=== PATIENT | female | born 1970 | race Caucasian/White ===

== ENCOUNTER 2017-02-07 21:49 | Observation (INO) ==
[2017-02-07] MEDS ORDERED: MORPHINE 2 MG/1 ML SYRINGE IV STA (22:52)
[2017-02-07] MEDS ORDERED: ALUM/MAG/SIMETH/LIDO VISC 1:1 30 ML BOTTLE PO STA (22:52)
[2017-02-07] MEDS ORDERED: METOPROLOL TARTRATE 25 MG TABLET PO STA (22:52)
[2017-02-07] MEDS ORDERED: NITROGLYCERIN 2% OINT 1 INCH/GM PACK TOP STA (22:52)
[2017-02-07] MEDS ORDERED: ASPIRIN 325 MG TABLET PO STA (22:52)
[2017-02-07] MEDS ORDERED: ONDANSETRON 4 MG/2 ML VIAL IV STA (22:52)
[2017-02-07 23:02] LABS: Basophils % 0.2 % (0.0-0.8); Eosinophils # 0.1 10*3/uL (0.0-0.87); Eosinophils % 1.2 % (0.00-10.9); Hematocrit 39.1 VOL% (35.7-47.0); Immature Granulocytes % 0.4 %; Immature Granulocytes Absolute 0.03 #; Lymphocytes % 24.7 % (21.3-54.2); Mean Corpuscular HGB Conc 33.2 GM/DL (32-36); Mean Corpuscular Hemoglobin 28 PG (27-34); Mean Corpuscular Volume 82.8 FL (87-102); Monocytes # 0.4 10*3/uL (0.11-0.8); Monocytes % 4.6 % (1.7-12.7); Neutrophils # 5.7 10*3/uL (1.4-7.4); Neutrophils % 68.9 % (38.7-73.9); Platelet Count 160 T/CUMM (130-400); Red Blood Count 4.72 MC/CUMM (3.8-5.5); Red Cell Distribution Width 14.1 % (9.3-17.3); White Blood Count 8.2 T/CUMM (4-12)
[2017-02-07] MEDS ORDERED: ONDANSETRON 4 MG/2 ML VIAL ONE (23:04)
[2017-02-07] MEDS ORDERED: NITROGLYCERIN 2% OINT 1 INCH/GM PACK TOP ONE (23:04)
[2017-02-07] MEDS ORDERED: METOPROLOL TARTRATE 25 MG TABLET ONE (23:04)
[2017-02-07] MEDS ORDERED: ALUM/MAG/SIMETH/LIDO VISC 1:1 30 ML BOTTLE PO ONE (23:05)
[2017-02-07] MEDS ORDERED: MORPHINE 2 MG/1 ML SYRINGE ONE (23:05)
--- NOTE | 2017-02-07 23:08 | Emergency Department Note ---
Joelle Browne Hilary, am scribing for, and in the presence of, Derick Martinez MD 23:01. Juan Browne Charles R, MD, personally performed the services described in this documentation, ascribed by Joan Lai in my presence, and it is both accurate and complete . Arrival - Arrival Chief Complaint: Chest Pain ED Nursing Triage Note: C/O Chest pain under left breast s/p arguing with her adult son. Pt describes pain as sharp in nature. Pt was given 324mg ASA and 1 SL nitro without relief by EMS. EKG obtained. Mode of Arrival: Stretcher Limitations: No Limitations Source: Patient, RN Notes Reviewed Time Seen by Provider: 02/07/17 22:28 - History of Present Illness HPI Narrative: Pt is a 46 y/o white female presenting to the ED with c/o chest pain which onset around 2100. She reports that she was arguing with her son upon onset and that the pain has lessoned but is still there. Pt confirms chest pain and SOB on exertion that improves upon rest but denies abdominal pain. Pt had a stress test and heart cath in 2009 which was normal. No other complaints or problems stated in the ED. Onset (ago): hour(s) Consistency: constant Severity: moderate Severity scale (1-10): 3 Quality: sharp Date of Last Menstrual Period: Hysterectomy Allergies/Adverse Reactions: Allergies Allergy/AdvReac Type Severity Reaction Status Date / Time Penicillins Allergy RASH Verified 01/30/17 00:10 Home Medications: Home Medications Medication Instructions Recorded Confirmed Type Aspirin 325 mg PO DAILY 02/07/17 02/07/17 History Gabapentin Cap/Tab [Neurontin 200 mg PO BEDTIME 02/07/17 02/07/17 History Cap/Tab] Insulin Glargine [Lantus] 55 unit SUBCUT BEDTIME 02/07/17 02/07/17 History Insulin NPH Hum/Reg Insulin Hm 60 unit SUBCUT QAM 02/07/17 02/07/17 History [NovoLIN 70/30] Iron (Carbonyl) [Feosol Natural 45 mg PO DAILY 02/07/17 02/07/17 History Release Tab] Melatonin 10 mg PO BEDTIME 02/07/17 02/07/17 History Metformin HCl 500 mg PO BID 02/07/17 02/07/17 History tiZANidine [Zanaflex] 4 mg PO TID 02/07/17 02/07/17 History Review of System - Review of System 12 point system: reviewed and no additional remarkable complaints except as stated - Review of System Constitutional: Absent: fever Respiratory: Present: respiratory distress (SOB on exertion) Cardiovascular: Present: chest pain Gastrointestinal: Absent: abdominal pain Medical,Surgical,& Family Hx - Medical History Cardio: History of: Hypertension Psychological: History of: Anxiety Disorders Endocrine: History of: Diabetes Mellitus (IDDM) Respiratory: History of: Asthma, Bronchitis - Surgical History Orthopedic Surgeries: Surgical HX of;: Orthopedic Surgery (ORIF left femur fracture) - Social History Smoking Status: Current every day smoker Frequency of Alcohol Use: None Type of Drug Use: None Exam Vital Signs: Vital Signs Temperature 98.2 F 02/07/17 21:49 Pulse Rate 85 02/07/17 23:00 Respiratory Rate 18 02/07/17 23:00 Blood Pressure 129/90 02/07/17 23:00 O2 Sat by Pulse Oximetry 100 02/07/17 23:00 - General General appearance: alert, in no apparent distress - Head Head exam: Present: atraumatic, normocephalic - Eye Eye exam: Present: normal appearance, PERRL, EOMI - ENT ENT exam: Present: mucous membranes moist, TM's normal bilaterally. Absent: mucous membranes dry - Neck Neck exam: Present: full ROM, trachea midline. Absent: tenderness - Chest Chest inspection: Present: symmetric chest wall rise. Absent: tenderness - Respiratory Respiratory exam: Present: rhonchi (bilaterally) - Cardiovascular Cardiovascular exam: Present: regular rate, normal rhythm, normal heart sounds. Absent: murmur, rubs, gallop - Abdominal Exam Abdominal exam: Present: soft, normal bowel sounds. Absent: distention, tenderness - Extremities Exam Extremities exam: Present: full ROM, tenderness, pedal edema (+1 pedal edema) - Back Exam Back exam: Present: full ROM. Absent: tenderness - Neurological Exam Neurological exam: Present: alert, oriented X3, CN II-XII intact. Absent: motor sensory deficit - Psychiatric Psychiatric exam: Present: normal affect, normal mood - Skin Skin exam: Present: warm, dry, intact, normal color. Absent: rash Course - Consultations Consultation #1: Hospitalist will admit patient Time: 23:56 Results - Labs CBC & BMP: 02/07/17 22:06 02/07/17 22:06 Lab Results: I have reviewed the patients labs Labs: Laboratory Tests 02/07/17 22:06 WBC 8.2 RBC 4.72 Hgb 13.0 Hct 39.1 MCV 82.8 L MPV 13.0 H Laboratory Tests 02/07/17 02/07/17 02/07/17 22:06 22:06 22:53 INR 1.0 PT Patient/Control Mix 10.5 D-Dimer, Quantitative <= 0.5 Sodium 137 Potassium 3.8 Chloride 101 Carbon Dioxide 23 Anion Gap 16.8 H Glucose 309 H Magnesium 1.6 L Total Bilirubin < 0.39 L Albumin 3.3 L Albumin/Globulin Ratio 0.9 L Lipase 53.0 L Urine Color Yellow Urine Appearance Cloudy Urine Urobilinogen < 2.0 H Laboratory Tests 02/07/17 02/07/17 22:06 22:50 B-Natriuretic Peptide 4 Urine Opiates Screen Negative Ur Barbiturates Screen Negative Ur Phencyclidine Scrn Negative U Amphetamine/Methamph Negative U Benzodiazepines Scrn Negative U Cocaine Metab Screen Negative U Cannabinoids Screen Negative Disposition Clinical Impression: Chest pain, Uncontrolled diabetes mellitus, Hyperglycemia, Chest pain, Atypical chest pain Case discussed with: patient Disposition: Still a Patient Condition: Stable Time of Disposition: 23:55
[2017-02-07 23:10] LABS: D-Dimer <= 0.5 MG/L FEU; PT Patient Result 10.5 SECS
[2017-02-07 23:14] LABS: Apearance,Urine CLOUDY (Clear); Bilirubin,Urine Negative (Negative); Blood, Urine Negative (Negative); Glucose,Urine (UA) >=500 mg/dL (Negative); Ketones,Urine Negative (Negative); Mucus,Urine Occasional /LPF (Occasional); Nitrite,Urine Negative (Negative); Protein,Urine Negative; RBC,Urine 2 /HPF (0-4); Squamous Epithelial Cell,Urine Many /HPF (0-10); Urine Color Yellow (Yellow); Urine Specific Gravity 1.021 (1.001-1.035); Urine Urobilinogen < 2.0 EU/DL (0.2-1.0); WBC,Urine 2 /HPF (0-6)
[2017-02-07 23:20] LABS: Alanine Aminotransferase 28 U/L (13-56); Albumin 3.3 G/DL (3.4-5.0); Alkaline Phosphatase 101 U/L (45-117); Aspartate Amino Transferase 18 U/L (0-37); Blood Urea Nitrogen 12 MG/DL (7-18); Calcium 8.5 MG/DL (8.5-10.1); Glucose 309 MG/DL (74-106); Magnesium 1.6 MG/DL (1.8-2.4); Osmolality,Calculated 284.8 MOS/KG (273-304); Potassium 3.8 MMOL/L (3.5-5.1); Sodium 137 MMOL/L (136-145); Total Protein 6.8 G/DL (6.4-8.3)
[2017-02-07 23:38] LABS: Barbiturates Screen,Urine Negative (Negative); Benzodiazepines Screen,Urine Negative (Negative); Cannabinoid Screen,Urine Negative (Negative); Opiate Screen,Urine Negative (Negative); Phencyclidine Screen,Urine Negative (Negative)
[2017-02-07] MEDS ORDERED: MAGNESIUM SULF RIDER 2 GM in PREMIX 1 EACH IV STA (23:52)
[2017-02-07] MEDS ORDERED: ENOXAPARIN 100 MG/ML SYRINGE SUBCUT STA (23:55)
[2017-02-08] MEDS ORDERED: ENOXAPARIN 120 MG/0.8 ML SYRINGE SUBCUT ONE (00:16)
[2017-02-08] MEDS ORDERED: MAGNESIUM SULF RIDER 50 ML IV ONE (00:16)
[2017-02-08] MEDS ORDERED: ONDANSETRON 4 MG/2 ML VIAL IV PRN (00:43)
[2017-02-08] MEDS ORDERED: GLUCAGON 1 MG VIAL IM PRN (00:47)
[2017-02-08] MEDS ORDERED: DEXTROSE 50% 25 GM/50 ML VIAL IV PRN (00:47)
[2017-02-08] MEDS ORDERED: GABAPENTIN 100 MG CAPSULE PO SCH (01:00)
[2017-02-08] MEDS ORDERED: MELATONIN 3 MG TABLET PO SCH (01:00)
--- NOTE | 2017-02-08 01:20 | Hospitalist History & Physical ---
Assessment and Plan (1) Uncontrolled diabetes mellitus Status: Acute Current Visit: Yes (2) Hyperglycemia Status: Acute Current Visit: Yes (3) Atypical chest pain Status: Acute Assessment and plan: Plan for this patient will be admission to telemetry. Serial cardiac enzymes will be drawn. Treat her pain as needed with IV morphine. Her pain sounds very atypical does not sound cardiac but patient has 6 significant family history of early cardiac disease. Continue home meds as appropriate. Consult [facility] cardiology to see the patient. Current Visit: Yes History of Present Illness Chief complaint: Chest pain History of present illness: Ms. Galindo is a 46 year old female past medical history of depression and diabetes who was in normal state of health until tonight. Patient got an argument with her adult child. During the argument patient developed chest pain. She described it as stabbing. She denies nausea. She said it radiated down her left side and down her left arm. They checked her blood pressure and it was mildly elevated. She was brought up here for further evaluation. On my interview with the patient it became known that patients sister passed of a heart attack at age 41. And mom had a heart attack at age 44. I was consulted to admit the patient. Home Medications Medication Instructions Recorded Confirmed Type Aspirin 325 mg PO DAILY 02/07/17 02/07/17 History Gabapentin Cap/Tab [Neurontin 200 mg PO BEDTIME 02/07/17 02/07/17 History Cap/Tab] Insulin Glargine [Lantus] 55 unit SUBCUT BEDTIME 02/07/17 02/07/17 History Insulin NPH Hum/Reg Insulin Hm 60 unit SUBCUT QAM 02/07/17 02/07/17 History [NovoLIN 70/30] Iron (Carbonyl) [Feosol Natural 45 mg PO DAILY 02/07/17 02/07/17 History Release Tab] Melatonin 10 mg PO BEDTIME 02/07/17 02/07/17 History Metformin HCl 500 mg PO BID 02/07/17 02/07/17 History tiZANidine [Zanaflex] 4 mg PO TID 02/07/17 02/07/17 History Allergies Allergy/AdvReac Type Severity Reaction Status Date / Time Penicillins Allergy RASH Verified 01/30/17 00:10 Medical,Surgical,& Family Hx - Medical History Cardio: History of: Hypertension Psychological: History of: Anxiety Disorders Endocrine: History of: Diabetes Mellitus (IDDM) Respiratory: History of: Asthma, Bronchitis - Surgical History Orthopedic Surgeries: Surgical HX of;: Orthopedic Surgery (ORIF left femur fracture) - Family History Family History: Reports;: Family Heart Disease - Social History Smoking Status: Current every day smoker Frequency of Alcohol Use: None Type of Drug Use: None 12 point system: reviewed and no additional remarkable complaints except as stated Exam - Constitutional Vitals: Period Temp Pulse Resp BP Sys/Piña Pulse Ox Last 24 Hr 98.2 F-98.2 F 85-94 18-20 104-129/75-90 99-100 General appearance: over weight - Head Head exam: Present: normal inspection - Eye Eye exam: Present: EOMI Pupils: Present: ROCKY - ENT ENT exam: Present: normal exam - Neck Neck exam: Present: normal inspection - Respiratory Respiratory exam: Present: clear to auscultation bilaterally - Cardiovascular Cardiovascular exam: Present: regular rate and rhythm - GI/Abdominal GI/Abdominal exam: Present: normal bowel sounds - Extremities Exam Extremities exam: Present: normal inspection - Back Exam Back exam: Present: normal inspection - Neurological Exam Neurological exam: Present: alert, oriented X3 - Psychiatric Psychiatric exam: Present: normal affect, normal mood Results - Labs CBC & BMP: 02/07/17 22:06 02/07/17 22:06
[2017-02-08] MEDS ORDERED: MORPHINE 2 MG/1 ML SYRINGE IV PRN (01:51)
--- NOTE | 2017-02-08 05:37 | EKG Report ---
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
[2017-02-08] MEDS: NITROGLYCERIN 2% OINT 1 INCH/GM PACK TOP SCH ×2 (06:20→12:00)
--- NOTE | 2017-02-08 06:21 | EKG Report ---
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
--- NOTE | 2017-02-08 07:43 | XRay Report ---
XR chest 1V portable Indication: Chest pain Comparison: Chest x-ray dated January 30, 2017 Technique: Single frontal view of the chest. Findings: The cardiomediastinal silhouette is stable in configuration. No focal consolidation, pleural effusion, or pneumothorax. Visualized osseous and surrounding soft tissue structures appear grossly unchanged. IMPRESSION: Stable chest x-ray without acute cardiopulmonary process demonstrated. PROCEDURE INTERPRETED AT [facility] DEPARTMENT OF RADIOLOGY Final Report Signed by: Dr Greg Hills
[2017-02-08] MEDS: INSULIN REGULAR 100 UNIT/ML SUBCUT SCH ×2 (08:54→12:09)
--- NOTE | 2017-02-08 08:55 | EKG Report ---
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
[2017-02-08] MEDS ORDERED: ENOXAPARIN 40 MG/0.4 ML SYRINGE SUBCUT SCH (09:00)
[2017-02-08] MEDS ORDERED: IRON (CARBONYL) 45 MG TABLET PO SCH (09:00)
[2017-02-08] MEDS ORDERED: ASPIRIN EC 325 MG TABLET PO SCH (09:00)
[2017-02-08] MEDS: tiZANidine 4 MG TABLET PO SCH ×2 (09:05→15:43)
--- NOTE | 2017-02-08 10:01 | Cardiology Consult Note ---
Assessment and Plan (1) Atypical chest pain Status: Acute Assessment and plan: SEE PLAN OF CARE LISTED BELOW. Current Visit: Yes (2) Smoker Status: Chronic Assessment and plan: SEE PLAN OF CARE LISTED BELOW. Current Visit: Yes (3) Asthma Status: Chronic Assessment and plan: SEE PLAN OF CARE LISTED BELOW. Current Visit: Yes (4) Obesity Status: Chronic Assessment and plan: SEE PLAN OF CARE LISTED BELOW. Current Visit: Yes (5) Family history of premature CAD Status: Chronic Assessment and plan: SEE PLAN OF CARE LISTED BELOW. Current Visit: Yes (6) Uncontrolled diabetes mellitus Status: Chronic Assessment and plan: SEE PLAN OF CARE LISTED BELOW. Current Visit: Yes Qualifiers: Diabetes mellitus type: type 2 (7) Stress Status: Acute Assessment and plan: SEE PLAN OF CARE LISTED BELOW. Current Visit: Yes (8) Depression Status: Chronic Assessment and plan: SEE PLAN OF CARE LISTED BELOW. 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 Nathan, nurse practitioner in [place] Ms. Galindo is a 46 year old female female without known history of coronary artery disease, not routinely followed by cardiology. Patient presented to the emergency department yesterday evening with complaints of atypical chest pain. Patient has cardiac risk factors significant for diabetes , obesity, sedentary lifestyle, current everyday smoker (admits to smoking a pack and a half a day) and family history of coronary artery disease (mom had coronary bypass grafting at age 44 and sister from massive NC at age 41). Patient has a past medical history of asthma. Patient reports that she underwent cardiac workup in [facility]. She had a normal cardiac stress test and heart catheterization in either 2009 or 2012. She admits that she cannot exactly remember the exact year this was performed. Patient was in her usual state of health until yesterday evening around 9 PM when she began experiencing moderate stabbing/sharp chest pain. This is located under her left breast and radiated down her left side. Associated with shortness of breath and nausea. She is unable to identify any specific alleviating or aggravating factors. She reports that this was concerning to her so she presented to the emergency department for further evaluation. In the emergency department, she received nitroglycerin and morphine. She tells me that this did lessen her pain. However, it did not completely resolve it. Her chest pain was ongoing for approximately 7 hours. It did not completely resolve until she "calmed down and went to sleep early this morning." She confirms that she experiences chest pain a lot when she is under a lot of stress and has arguments with her son. Patient was admitted under hospitalist' s service and housed the telemetry unit. Cardiology has been consulted to further evaluate patient's chest discomfort. Of note, patient confirms that this was not her first time experiencing chest discomfort. She tells me that a couple of days ago she experienced chest discomfort while sweeping her kitchen floor. This was made better with rest. Lasted approximately 20 minutes. Associated with shortness of breath. She also confirms easy fatigability and dyspnea on exertion. Patient was seen and examined on the telemetry unit. She is currently without chest pain, heaviness and tightness. EKG is unremarkable. Cardiac biomarkers have been negative 3. Chest x-ray does not reveal any acute cardiopulmonary processes. Vital signs are stable. Patient iscurrently in a normal sinus rhythm heart rates in the 70s without any overt arrhythmias or ectopy noted. Patient's chest pain appears to be stress related. Zoloft will be initiated. However, patient does have several risk factors including: Diabetes, current everyday smoker, obesity and family history of premature coronary disease. Because of this, we recommend that patient undergo cardiac stress testing today. However, patient was not in favor of this as she is hungry and ready to eat. I assured her that we could perform this test within the next 30 minutes and have the results within the next hour. However, she still insisted to have this done as an outpatient. She preferred to have this done here at [facility]. This was discussed with Dr. Austin, he feels that patient is stable for discharge home today. She will be given an appointment for outpatient cardiac stress testing here at [facility]. She will need an appointment to follow up with her PCP Gaby, nurse practitioner in [place]. She can follow with cardiology on an as-needed basis. Assessment/plan: 1. ATYPICAL CHEST PAIN - Patient presented with atypical chest pain. Appears to be stress related. Will initiate Zoloft. EKG is unremarkable and cardiac biomarkers have been negative 3. However, patient does have several risk factors including: Diabetes, current everyday smoker, obesity and family history of premature coronary disease. Because of this, we recommended that patient undergo cardiac stress testing today. However, patient was not in favor of this as she was hungry and ready to eat. I assured her that we could perform this test within the next 30 minutes and have the results within the next hour. However, she still insisted to have this done as an outpatient. This was discussed with Dr. Austin, he feels that patient is stable for discharge home today. She will be given an appointment for outpatient cardiac stress testing here at [facility]. She will need an appointment to follow up with her PCP Gaby, nurse practitioner in [place]. She can follow with cardiology on an as-needed basis. 2. DIABETES - This is currently uncontrolled. I will increase patient's sliding scale insulin to medium regimen. 3. CURRENT EVERYDAY SMOKER - Smoking cessation was encouraged. 4. OBESITY - Weight loss was encouraged. 5. FAMILY HISTORY OF PREMATURE CORONARY ARTERY DISEASE - Patient reports a positive family history of premature coronary artery disease (mother underwent coronary bypass grafting at age 44 and sister from massive myocardial infarction at age 41). 6. ASTHMA - Defer management of this to attending. 7. DEPRESSION / STRESS -Zoloft has been initiated. Cardiac discharge medication recommendations: Aspirin 325 mg p.o. daily Zoloft 25 mg daily 7 days and patient may increase dose to 50 mg daily. PPI CC: Mary Aguilera MD - Home Medications and Allergies Home Medications: Home Medications Medication Instructions Recorded Confirmed Type Aspirin 325 mg PO DAILY 02/07/17 02/07/17 History Gabapentin Cap/Tab [Neurontin 200 mg PO BEDTIME 02/07/17 02/07/17 History Cap/Tab] Insulin Glargine [Lantus] 55 unit SUBCUT BEDTIME 02/07/17 02/07/17 History Insulin NPH Hum/Reg Insulin Hm 60 unit SUBCUT QAM 02/07/17 02/07/17 History [NovoLIN 70/30] Iron (Carbonyl) [Feosol Natural 45 mg PO DAILY 02/07/17 02/07/17 History Release Tab] Melatonin 10 mg PO BEDTIME 02/07/17 02/07/17 History Metformin HCl 500 mg PO BID 02/07/17 02/07/17 History tiZANidine [Zanaflex] 4 mg PO TID 02/07/17 02/07/17 History Hydrocodone/Acetaminophen [[place] 1 each PO Q4HR PRN 02/08/17 02/08/17 History 10-325 Tablet] Allergies/Adverse Reactions: Allergies Allergy/AdvReac Type Severity Reaction Status Date / Time Penicillins Allergy RASH Verified 01/30/17 00:10 - Constitutional Constitutional: Absent: chills, fatigue, fever(s), frequent falls, lethargy, malaise, weakness, weight gain, weight loss - Cardiovascular Cardiovascular: Present: as per HPI, chest pain at rest, dyspnea, dyspnea on exertion. Absent: claudication, diaphoresis, edema, radiating jaw, neck or arm pain, lightheadedness, orthopnea, palpitations, PND - Respiratory Respiratory: Present: dyspnea, dyspnea on exertion, wheezing. Absent: hemoptysis, snoring, pain on inspiration, change in phlegm color - Gastrointestinal Gastrointestinal: Absent: abdominal pain, change in bowel habits, coffee ground emesis, constipation, cramping, diarrhea, heartburn, hematemesis, hematochezia, loose stools, melena, nausea, vomiting - Neurological Neurological: Absent: abnormal gait, abnormal speech, behavioral changes, dizziness, frequent falls, numbness, paresthesias, syncope - Psychiatric Psychiatric: Present: anxiety, depression, panic attacks - Hematologic/Lymphatic Hematologic/Lymphatic: Absent: easy bleeding, easy bruising, lymphadenopathy Medical,Surgical,& Family Hx - Medical History Psychological: History of: Anxiety Disorders, Depression Endocrine: History of: Diabetes Mellitus (NIDDM) Respiratory: History of: Asthma Musculoskeletal: History of: Musculoskeletal Problems Other: History of: Miscellaneous Medical Problems (Obesity) - Surgical History Cardiac Surgeries: Sugical HX of: Cardiac Catheterization Reproductive Surgeries: Surgical HX of;: Gynecologic Surgery, Hysterectomy Orthopedic Surgeries: Surgical HX of;: Orthopedic Surgery (ORIF left femur fracture) - Family History Family History: Reports;: Family Heart Disease (mother and sister) - Social History Smoking Status: Current every day smoker Frequency of Alcohol Use: Occasionally Type of Drug Use: None Marital Status: Lives With:: Spouse Functional capacity: independent ambulation Physical Examination Vital Signs Temp Pulse Resp BP Pulse Ox 98.2 F 94 H 20 128/77 99 02/07/17 21:49 02/07/17 21:49 02/07/17 21:49 02/07/17 21:49 02/07/17 21:49 Other: General: Appears well with no apparent distress. Pleasant and cooperative. Appears comfortable. HEENT: PERRL, normocephalic, atraumatic. Mucous membranes moist. No jaundice noted. Conjunctiva moist and clear, sclerae anicteric Neck: No JVD/HJR, no thyromegaly or lymphadenopathy noted. No carotid bruit appreciated Cardiac: Regular rate and rhythm. No murmur rub or gallop. Lungs: Clear to auscultation without accessory muscle use to assist the respiratory pattern. Minimal wheezing. Not requiring oxygen. Abdomen: Soft, bowel sounds normoactive. Nontender and nondistended. No abdominal bruit or thrill noted. No masses noted. Extremities: No clubbing, cyanosis noted. No edema noted. Upper extremity pulses 2+. Lower extremity pulses 2+. Capillary refill less than 3 seconds. Skin: No unusual lesions or rashes. No skin breakdown appreciated. Neuro: Awake, alert and oriented 3. Moves all extremities well without hemiparesis or paralysis. No essential tremor is appreciated. Result/EKG - Labs CBC & BMP: 02/07/17 22:06 02/07/17 22:06 Lab Results: I have reviewed the past 24 hour labs Labs: Laboratory Results - last 24 hr 02/07/17 02/07/17 02/07/17 22:06 22:06 22:06 WBC RBC Hgb Hct MCV MCH MCHC RDW Plt Count MPV Neut % (Auto) Lymph % (Auto) [place] % (Auto) Eos % (Auto) Baso % (Auto) Neut # (Auto) Lymph # (Auto) [place] # (Auto) Eos # (Auto) Baso # (Auto) Immature Gran % Nucleated RBC % Immature Gran # Nucleated RBCs # INR 1.0 PT Patient/Control Mix 10.5 D-Dimer, Quantitative <= 0.5 Sodium 137 Potassium 3.8 Chloride 101 Carbon Dioxide 23 Anion Gap 16.8 H BUN 12 Creatinine 0.80 GFR Calculation 121 BUN/Creatinine Ratio 15.00 Glucose 309 H POC Glucose Calculated Osmolality 284.8 Calcium 8.5 Magnesium 1.6 L Total Bilirubin < 0.39 L AST 18 ALT 28 Alkaline Phosphatase 101 Troponin I < 0.015 B-Natriuretic Peptide Total Protein 6.8 Albumin 3.3 L Globulin 3.5 Albumin/Globulin Ratio 0.9 L Lipase 53.0 L Urine Color Urine Appearance Urine pH Ur Specific [place] Urine Protein Urine Glucose (UA) Urine Ketones Urine Blood Urine Nitrate Urine Bilirubin Urine Urobilinogen Urine Leukocytes Urine RBC Urine WBC Ur Squamous Epith Cells Urine Mucus Ur Culture Indicated? Urine Opiates Screen Ur Barbiturates Screen Ur Phencyclidine Scrn U Amphetamine/Methamph U Benzodiazepines Scrn U Cocaine Metab Screen U Cannabinoids Screen 02/07/17 02/07/17 02/07/17 22:06 22:06 22:50 WBC 8.2 RBC 4.72 Hgb 13.0 Hct 39.1 MCV 82.8 L MCH 28 MCHC 33.2 RDW 14.1 Plt Count 160 MPV 13.0 H Neut % (Auto) 68.9 Lymph % (Auto) 24.7 [place] % (Auto) 4.6 Eos % (Auto) 1.2 Baso % (Auto) 0.2 Neut # (Auto) 5.7 Lymph # (Auto) 2.0 [place] # (Auto) 0.4 Eos # (Auto) 0.1 Baso # (Auto) 0.0 Immature Gran % 0.4 Nucleated RBC % 0.0 Immature Gran # 0.03 Nucleated RBCs # 0.00 INR PT Patient/Control Mix D-Dimer, Quantitative Sodium Potassium Chloride Carbon Dioxide Anion Gap BUN Creatinine GFR Calculation BUN/Creatinine Ratio Glucose POC Glucose Calculated Osmolality Calcium Magnesium Total Bilirubin AST ALT Alkaline Phosphatase Troponin I B-Natriuretic Peptide 4 Total Protein Albumin Globulin Albumin/Globulin Ratio Lipase Urine Color Urine Appearance Urine pH Ur Specific [place] Urine Protein Urine Glucose (UA) Urine Ketones Urine Blood Urine Nitrate Urine Bilirubin Urine Urobilinogen Urine Leukocytes Urine RBC Urine WBC Ur Squamous Epith Cells Urine Mucus Ur Culture Indicated? Urine Opiates Screen Negative Ur Barbiturates Screen Negative Ur Phencyclidine Scrn Negative U Amphetamine/Methamph Negative U Benzodiazepines Scrn Negative U Cocaine Metab Screen Negative U Cannabinoids Screen Negative 02/07/17 02/08/17 02/08/17 22:53 03:35 05:02 WBC RBC Hgb Hct MCV MCH MCHC RDW Plt Count MPV Neut % (Auto) Lymph % (Auto) [place] % (Auto) Eos % (Auto) Baso % (Auto) Neut # (Auto) Lymph # (Auto) [place] # (Auto) Eos # (Auto) Baso # (Auto) Immature Gran % Nucleated RBC % Immature Gran # Nucleated RBCs # INR PT Patient/Control Mix D-Dimer, Quantitative Sodium Potassium Chloride Carbon Dioxide Anion Gap BUN Creatinine GFR Calculation BUN/Creatinine Ratio Glucose POC Glucose Calculated Osmolality Calcium Magnesium Total Bilirubin AST ALT Alkaline Phosphatase Troponin I < 0.015 < 0.015 B-Natriuretic Peptide Total Protein Albumin Globulin Albumin/Globulin Ratio Lipase Urine Color Yellow Urine Appearance Cloudy Urine pH 5.0 Ur Specific [place] 1.021 Urine Protein Negative Urine Glucose (UA) >=500 Urine Ketones Negative Urine Blood Negative Urine Nitrate Negative Urine Bilirubin Negative Urine Urobilinogen < 2.0 H Urine Leukocytes Trace Urine RBC 2 Urine WBC 2 Ur Squamous Epith Cells Many Urine Mucus Occasional Ur Culture Indicated? Not indicated Urine Opiates Screen Ur Barbiturates Screen Ur Phencyclidine Scrn U Amphetamine/Methamph U Benzodiazepines Scrn U Cocaine Metab Screen U Cannabinoids Screen 02/08/17 07:42 WBC RBC Hgb Hct MCV MCH MCHC RDW Plt Count MPV Neut % (Auto) Lymph % (Auto) [place] % (Auto) Eos % (Auto) Baso % (Auto) Neut # (Auto) Lymph # (Auto) [place] # (Auto) Eos # (Auto) Baso # (Auto) Immature Gran % Nucleated RBC % Immature Gran # Nucleated RBCs # INR PT Patient/Control Mix D-Dimer, Quantitative Sodium Potassium Chloride Carbon Dioxide Anion Gap BUN Creatinine GFR Calculation BUN/Creatinine Ratio Glucose POC Glucose 223 H Calculated Osmolality Calcium Magnesium Total Bilirubin AST ALT Alkaline Phosphatase Troponin I B-Natriuretic Peptide Total Protein Albumin Globulin Albumin/Globulin Ratio Lipase Urine Color Urine Appearance Urine pH Ur Specific [place] Urine Protein Urine Glucose (UA) Urine Ketones Urine Blood Urine Nitrate Urine Bilirubin Urine Urobilinogen Urine Leukocytes Urine RBC Urine WBC Ur Squamous Epith Cells Urine Mucus Ur Culture Indicated? Urine Opiates Screen Ur Barbiturates Screen Ur Phencyclidine Scrn U Amphetamine/Methamph U Benzodiazepines Scrn U Cocaine Metab Screen U Cannabinoids Screen - EKG EKG results: interpreted by me, sinus rhythm
[2017-02-08] MEDS ORDERED: MAGNESIUM SULF RIDER 2 GM in PREMIX 1 EACH IV PRN (11:51)
[2017-02-08] MEDS ORDERED: MAGNESIUM SULF RIDER 4 GM in PREMIX 1 EACH IV PRN (11:51)
[2017-02-08] MEDS ORDERED: PANTOPRAZOLE 40 MG TABLET PO SCH (12:00)
[2017-02-08 12:02] VITALS: BP 111/69
[2017-02-08 12:15] LABS: Bilirubin,Total < 0.39 MG/DL (0.2-1.0)
--- NOTE | 2017-02-08 13:09 | Discharge Summary ---
Hospital Course - Hospital Course Hospital Course: Patient is a 46-year-old female with a history of ongoing tobacco use , hypertension, asthma, diabetes mellitus type 2 and obesity who presented to the hospital with a chief complaint of chest pain. She was placed on observation on the chest pain pathway and ruled out for acute coronary syndrome. Given her risk factors cardiology was consulted to assist with her management. It was recommended that the patient have a stress test but she declined this and patient. Cardiology has recommended aspirin 325 mg by mouth daily and Zoloft 25 mg by mouth daily and a proton pump inhibitor. She may be able to increase to 50 mg of Zoloft in 1 week but I will defer this to her PCP. When she was cleared by all consultants patient was discharged home and instructed to follow-up with her primary care provider within 1 week. Patient was also counseled on smoking cessation and she expressed understanding. - Time spent with patient Time with patient DS: Greater than 30 minutes (33 minutes) Diagnosis - Discharge Diagnosis (1) Chest pain Status: Acute (2) Uncontrolled diabetes mellitus Status: Chronic (3) Smoker Status: Chronic (4) Asthma Status: Chronic (5) Obesity Status: Chronic (6) Family history of premature CAD Status: Chronic (7) Depression Status: Chronic Specialty Discharge - Follow Up or Referrals Follow up with: Geronimo Austin MD [Physician] - 1 Week (outpatient stress test) [facility] [[facility]] - 2 Weeks Discharge Plan - Discharge Data Disposition: Disch To Home/Self Care Condition at Discharge: Stable Discharge Diet: diabetic diet, heart healthy Activity: other (Avoid tobacco use) Contact your physician if you experience:: fever over 101, Difficulty voiding, Redness or swelling, Nausea/Vomiting, Shortness of breath, Bleeding, pain uncontrolled by pain medications - Discharge Medications New Sertraline [Zoloft] 25 mg PO BEDTIME #30 tablet Pantoprazole Tab [Protonix Tab] 40 mg PO DAILY #30 tablet Continue Iron (Carbonyl) [Feosol Natural Release Tab] 45 mg PO DAILY tiZANidine [Zanaflex] 4 mg PO TID Metformin HCl 500 mg PO BID Gabapentin Cap/Tab [Neurontin Cap/Tab] 200 mg PO BEDTIME Aspirin 325 mg PO DAILY Hydrocodone/Acetaminophen [[place] 10-325 Tablet] 1 each PO Q4HR PRN PRN Reason: Pain Insulin NPH Hum/Reg Insulin Hm [NovoLIN 70/30] 60 unit SUBCUT QAM Melatonin 10 mg PO BEDTIME Insulin Glargine [Lantus] 55 unit SUBCUT BEDTIME - Follow Up or Referral - Forms/Instructions Exam - Constitutional Vitals: Period Temp Pulse Resp BP Sys/Piña Pulse Ox Last 24 Hr 96.1 F-98.6 F 75-94 16-20 104-129/69-90 96-100 Exam: Patient is awake alert and oriented 3 lying in hospital bed in no acute distress HEENT exam reveals pupils are equal and reactive to light extraocular muscles are intact sclerae clear projected pink nares are patent no discharge or epistaxis noted oropharynx is clear no oral lesions or thrush Neck is supple no lymphadenopathy or thyromegaly appreciated. No JVD. Cardiovascular exam reveals regular rate and rhythm normal S1-S2 no obvious murmurs rubs or gallops Lungs are clear to auscultation bilaterally, diminished, nonlabored breathing noted Abdomen is soft nontender nondistended positive bowel sounds no organomegaly or masses appreciated Extremity exam she is warm and well-perfused no clubbing cyanosis or edema. Neuro exam was nonfocal Discharge Results Procedures and tests throughout hospitalization: Pending Orders 02/09/17 04:00 BMP w/ Mg [Basic Metabolic Panel w/Mg] IN AM CBC [Comp Blood Count Auto Diff] IN AM 02/10/17 04:00 BMP w/ Mg [Basic Metabolic Panel w/Mg] IN AM CBC [Comp Blood Count Auto Diff] IN AM Labs on day of discharge: Labs from last 24 hours 02/08/17 02/08/17 02/08/17 11:49 07:42 05:02 WBC RBC Hgb Hct MCV MCH MCHC RDW Plt Count MPV Neut % (Auto) Lymph % (Auto) [place] % (Auto) Eos % (Auto) Baso % (Auto) Neut # (Auto) Lymph # (Auto) [place] # (Auto) Eos # (Auto) Baso # (Auto) Immature Gran % Nucleated RBC % Immature Gran # Nucleated RBCs # INR PT Patient/Control Mix D-Dimer, Quantitative Sodium Potassium Chloride Carbon Dioxide Anion Gap BUN Creatinine GFR Calculation BUN/Creatinine Ratio Glucose POC Glucose 237 H 223 H Calculated Osmolality Calcium Magnesium Total Bilirubin AST ALT Alkaline Phosphatase Troponin I < 0.015 B-Natriuretic Peptide Total Protein Albumin Globulin Albumin/Globulin Ratio Lipase Urine Color Urine Appearance Urine pH Ur Specific [place] Urine Protein Urine Glucose (UA) Urine Ketones Urine Blood Urine Nitrate Urine Bilirubin Urine Urobilinogen Urine Leukocytes Urine RBC Urine WBC Ur Squamous Epith Cells Urine Mucus Ur Culture Indicated? Urine Opiates Screen Ur Barbiturates Screen Ur Phencyclidine Scrn U Amphetamine/Methamph U Benzodiazepines Scrn U Cocaine Metab Screen U Cannabinoids Screen 02/08/17 02/07/17 02/07/17 03:35 22:53 22:50 WBC RBC Hgb Hct MCV MCH MCHC RDW Plt Count MPV Neut % (Auto) Lymph % (Auto) [place] % (Auto) Eos % (Auto) Baso % (Auto) Neut # (Auto) Lymph # (Auto) [place] # (Auto) Eos # (Auto) Baso # (Auto) Immature Gran % Nucleated RBC % Immature Gran # Nucleated RBCs # INR PT Patient/Control Mix D-Dimer, Quantitative Sodium Potassium Chloride Carbon Dioxide Anion Gap BUN Creatinine GFR Calculation BUN/Creatinine Ratio Glucose POC Glucose Calculated Osmolality Calcium Magnesium Total Bilirubin AST ALT Alkaline Phosphatase Troponin I < 0.015 B-Natriuretic Peptide Total Protein Albumin Globulin Albumin/Globulin Ratio Lipase Urine Color Yellow Urine Appearance Cloudy Urine pH 5.0 Ur Specific [place] 1.021 Urine Protein Negative Urine Glucose (UA) >=500 Urine Ketones Negative Urine Blood Negative Urine Nitrate Negative Urine Bilirubin Negative Urine Urobilinogen < 2.0 H Urine Leukocytes Trace Urine RBC 2 Urine WBC 2 Ur Squamous Epith Cells Many Urine Mucus Occasional Ur Culture Indicated? Not indicated Urine Opiates Screen Negative Ur Barbiturates Screen Negative Ur Phencyclidine Scrn Negative U Amphetamine/Methamph Negative U Benzodiazepines Scrn Negative U Cocaine Metab Screen Negative U Cannabinoids Screen Negative 02/07/17 02/07/17 02/07/17 22:06 22:06 22:06 WBC 8.2 RBC 4.72 Hgb 13.0 Hct 39.1 MCV 82.8 L MCH 28 MCHC 33.2 RDW 14.1 Plt Count 160 MPV 13.0 H Neut % (Auto) 68.9 Lymph % (Auto) 24.7 [place] % (Auto) 4.6 Eos % (Auto) 1.2 Baso % (Auto) 0.2 Neut # (Auto) 5.7 Lymph # (Auto) 2.0 [place] # (Auto) 0.4 Eos # (Auto) 0.1 Baso # (Auto) 0.0 Immature Gran % 0.4 Nucleated RBC % 0.0 Immature Gran # 0.03 Nucleated RBCs # 0.00 INR PT Patient/Control Mix D-Dimer, Quantitative Sodium 137 Potassium 3.8 Chloride 101 Carbon Dioxide 23 Anion Gap 16.8 H BUN 12 Creatinine 0.80 GFR Calculation 121 BUN/Creatinine Ratio 15.00 Glucose 309 H POC Glucose Calculated Osmolality 284.8 Calcium 8.5 Magnesium 1.6 L Total Bilirubin < 0.39 AST 18 ALT 28 Alkaline Phosphatase 101 Troponin I B-Natriuretic Peptide 4 Total Protein 6.8 Albumin 3.3 L Globulin 3.5 Albumin/Globulin Ratio 0.9 L Lipase 53.0 L Urine Color Urine Appearance Urine pH Ur Specific [place] Urine Protein Urine Glucose (UA) Urine Ketones Urine Blood Urine Nitrate Urine Bilirubin Urine Urobilinogen Urine Leukocytes Urine RBC Urine WBC Ur Squamous Epith Cells Urine Mucus Ur Culture Indicated? Urine Opiates Screen Ur Barbiturates Screen Ur Phencyclidine Scrn U Amphetamine/Methamph U Benzodiazepines Scrn U Cocaine Metab Screen U Cannabinoids Screen 02/07/17 02/07/17 22:06 22:06 WBC RBC Hgb Hct MCV MCH MCHC RDW Plt Count MPV Neut % (Auto) Lymph % (Auto) [place] % (Auto) Eos % (Auto) Baso % (Auto) Neut # (Auto) Lymph # (Auto) [place] # (Auto) Eos # (Auto) Baso # (Auto) Immature Gran % Nucleated RBC % Immature Gran # Nucleated RBCs # INR 1.0 PT Patient/Control Mix 10.5 D-Dimer, Quantitative <= 0.5 Sodium Potassium Chloride Carbon Dioxide Anion Gap BUN Creatinine GFR Calculation BUN/Creatinine Ratio Glucose POC Glucose Calculated Osmolality Calcium Magnesium Total Bilirubin AST ALT Alkaline Phosphatase Troponin I < 0.015 B-Natriuretic Peptide Total Protein Albumin Globulin Albumin/Globulin Ratio Lipase Urine Color Urine Appearance Urine pH Ur Specific [place] Urine Protein Urine Glucose (UA) Urine Ketones Urine Blood Urine Nitrate Urine Bilirubin Urine Urobilinogen Urine Leukocytes Urine RBC Urine WBC Ur Squamous Epith Cells Urine Mucus Ur Culture Indicated? Urine Opiates Screen Ur Barbiturates Screen Ur Phencyclidine Scrn U Amphetamine/Methamph U Benzodiazepines Scrn U Cocaine Metab Screen U Cannabinoids Screen DS: Provider Date of admission: 02/08/17 00:49 Primary care physician: . No PCP Attending physician on admission: Danny King MD Consults: 02/08/17 00:45 Consult to Physician [CONS] Routine Comment: Consulting Provider: Cardiology - [facility] Consult to Specialist Group: Cardiology When should Consulting Provider be notified: In am Person Notified: Eric Date Notified: 02/08/17 Time Notified: 08:25 Discharging clinician: Mary Aguilera MD
[2017-02-08] MEDS ORDERED: SERTRALINE 25 MG TABLET PO SCH (21:00)
== END 2017-02-08 16:09 | disposition home or self-care (01) ==
LOC: EDBD → EDUNIT# → N.ED 21:49 → N.EDINP 21:49 → SUATTDRO 02-08 00:49 → N.TELEN 02-08 01:17
PROVIDERS: ADMIT Internal Medicine; ATTEND Pediatrics